=== PATIENT | male | born 1975 | race Caucasian/White ===

== ENCOUNTER → 2018-10-09 10:16 | Outpatient (CLI) | payer BC, SELFPAY ==
[2018-10-09 14:10] LABS: Alanine Aminotransferase 52 U/L (12-78); Albumin Level 3.8 gm/dL (3.4-5.0); Alkaline Phosphatase 87 U/L (46-116); Anion Gap 12.2 mEq/L (5-15); Aspartate Amino Transferase 22 U/L (15-37); Bilirubin,Total 0.6 mg/dL (0.2-1.0); Blood Urea Nitrogen 13 mg/dL (7-18); Calcium 8.8 mg/dL (8.5-10.1); Carbon Dioxide 29 mmol/L (21.0-32.0); Chloride 104 mmol/L (98-107); Chol/HDL Ratio 5.7 (1-3.5); Cholesterol 235 mg/dL (140-200); Creatinine,Serum 0.91 mg/dL (0.70-1.30); Estimated Glomerular Filt Rate 91 ml/min (>60); GFR (African American) 110 ML/MIN (>60); Globulin 3.9 gm/dl (1.3-3.2); Glucose 103 mg/dL (74-106); HDL Cholesterol 41 mg/dL (27-67); LDL Cholesterol 154 mg/dL (0-130); Potassium 4.2 mmoL/L (3.5-5.1); Sodium 141 mmol/L (136-145); Total Protein,Serum 7.7 gm/dL (6.4-8.2); Triglycerides 200 mg/dL (30-200); VLDL Cholesterol 40 mg/dL (0-40)
== END ==
PROVIDERS: PCP Nurse Practitioner Family; Visit Provider Nurse Practitioner Family
DX: Z00.00 Encounter for general adult medical examination without abnormal findings (principal); Z68.37 Body mass index [BMI] 37.0-37.9, adult; I10 Essential (primary) hypertension
CPT/HCPCS: 36415; 80053; 80061

== ENCOUNTER → 2020-01-28 10:42 | Outpatient (CLI) | payer BC, SELFPAY ==
[2020-01-28 14:17] LABS: Basophils % 0.2 % (0.1-2.0); Eosinophils # 0.1 K/mm3 (0.0-0.4); Eosinophils % 1.4 % (0.1-12.0); Hematocrit 45.2 % (42.0-52.0); Lymphocytes # 2.6 K/mm3 (0.7-4.5); Mean Corpuscular HGB Conc 33.2 g/dL (31.8-35.4); Mean Corpuscular Hemoglobin 31.3 pg (27.0-31.2); Mean Corpuscular Volume 94.4 fl (80-94); Mean Platelet Volume 8.5 fl (7.4-10.4); Monocytes # 0.3 K/mm3 (0.1-1.0); Monocytes % 4.8 % (1.7-9.3); Neutrophils # 2.6 K/mm3 (1.8-7.8); Neutrophils % 46.6 % (37.0-80.0); Platelet Count 202 K/mm3 (142-424); Red Blood Count 4.79 M/mm3 (4.60-6.20); Red Cell Distribution Width 13.3 % (11.5-17.5); White Blood Count 5.6 K/mm3 (4.8-10.8)
[2020-01-28 14:22] LABS: Alanine Aminotransferase 45 U/L (12-78); Albumin Level 4.4 g/dl (3.5-5.0); Albumin/Globulin Ratio 1.3 (1.1-1.8); Alkaline Phosphatase 92 U/L (38-126); Anion Gap 9.3 mEq/L (5-15); Aspartate Amino Transferase 33 U/L (17-59); Bilirubin,Total 0.5 mg/dl (0.2-1.3); Blood Urea Nitrogen 13 mg/dl (9-20); Calcium 9.6 mg/dl (8.4-10.2); Carbon Dioxide 28 mmol/L (22.0-30.0); Chloride 104 mmol/L (98-107); Chol/HDL Ratio 5.7 (1-3.5); Cholesterol 227 mg/dl (140-200); Estimated Glomerular Filt Rate 91 ml/min (>60); GFR (African American) 110 ML/MIN (>60); Globulin 3.5 g/dL (1.3-3.2); Glucose 104 mg/dl (74-100); HDL Cholesterol 40 mg/dl (40-60); Potassium 4.3 mmoL/L (3.5-5.1); Sodium 137 mmol/L (136-145); Total Protein,Serum 7.9 g/dl (6.3-8.2); Triglycerides 213 mg/dl (30-150); VLDL Cholesterol 43 mg/dL (0-40)
[2020-01-28 14:33] LABS: Direct LDL Cholesterol 151.81 mg/dL (100-129)
[2020-01-28 14:53] LABS: Thyroid Stimulating Hormone 2.52 uIU/mL (0.465-4.68)
[2020-01-29 09:52] LABS: Testosterone,Total 318 ng/dL (264-916); Vitamin B12 403 pg/mL (232-1245)
== END ==
LOC: LAB.CARL 10:43
PROVIDERS: Visit Provider Nurse Practitioner Family
DX: I10 Essential (primary) hypertension (principal); R40.0 Somnolence; Z68.39 Body mass index [BMI] 39.0-39.9, adult
CPT/HCPCS: 36415; 80053; 80061; 82607; 84403; 84443; 85025

== ENCOUNTER → 2021-10-15 13:22 | Outpatient (CLI) | payer BC, SELFPAY | PROVIDERS: PCP Internal Medicine Adolescent Medicine; Visit Provider Nurse Practitioner | DX: Z20.822 Contact with and (suspected) exposure to COVID-19 (principal) | CPT/HCPCS: C9803; U0003; U0005 ==

== ENCOUNTER 2024-06-28 13:13 | Emergency (ER) | payer OTHER, SELFPAY ==
[2024-06-28 13:14] VITALS: BP 140/89; PULSE 83; RESP 18; TEMP 37.4; O2SAT 97; BMI 39.0
--- NOTE | 2024-06-28 13:57 | ED_ITS ---
<Statement entered by Zachery Pillai MD - 07/01/24 22:14> I was consulted by the LEANNA, and we discussed the complexity of the problems being addressed. I approved the treatment and management plan for this patient's care in the emergency department, thus performing a substantive portion of the medical decision making. Zachery Pillai MD, SILVIA, FACEP Discharge Plan Disposition Patient Disposition: Home, Self-Care Condition: Good Prescriptions Prescriptions: New amoxicillin-pot clavulanate 875-125 mg tablet 1 tab PO BID Qty: 20 0RF Referrals Follow up/Referrals: Leonard Newby MD [Staff Physician] - See instructions (Umbilical hernia) Everardo Clemens MD [Primary Care Provider] - See instructions Activity Restrictions/Add. Instructions Additional Instructions/Restrictions: Please call in the morning to make your appointment with general surgery for evaluation of your umbilical hernia. Return to the ER if you are unable to pass gas have a bowel movement or tolerate oral intake. Clinical Impressions Clinical Impression: Hernia, umbilical, Diverticulitis Instructions Patient Instructions: DI for Acute Abdominal Pain Print Language Print Language: Slovenian Discharge ED Provider: Zachery Pillai General Adult HPI General Chief complaint: Abdominal Pain Stated complaint: abd pain /poss hernia Time Seen by Provider: 06/28/24 13:57 Mode of Arrival: Ambulatory Source of Information: Patient Limitations: No Limitations Description of Symptoms (Recalled from ER Triage Doc. by RN): Reports irritating possible umbilical hernia. States he has never been diagnosed with a hernia however approx 1 day ago he began to have pain and burning in that area. History of Present Illness HPI narrative: Patient presents for evaluation of periumbilical pain. Patient has a self diagnosed umbilical hernia that he has had for quite some time and over the past year he has had intermittent difficulty. However the last 24 hours he has had significant amount of discomfort and is very tender to palpation. He is not intolerant of oral intake but does not want to eat but is taking oral fluids. He is passing gas and has had a bowel movement. He denies chest pain fever chills hemoptysis hematochezia melena nausea vomiting diarrhea. Related Data Previous Rx's ?Medication ?Instructions ?Recorded amoxicillin 875 mg-potassium 1 tab PO BID #20 tabs 06/28/24 clavulanate 125 mg tablet Allergies Allergy/AdvReac Type Severity Reaction Status Date / Time No Known Allergies Allergy Verified 06/28/24 13:32 [facility] Disclaimer: The information contained in this section may have been updated after the patient was seen, as this information can be updated by other users. Social History Smoking Status: Unknown if ever smoked alcohol intake: never current occupational status: employed Travel in the last 8 weeks: Inside the [place] ROS Obtained: Yes Systems reviewed as appropriate & no additional complaints except as documented Physical Exam General General appearance: alert and in no apparent distress Respiratory Respiratory exam: Present normal lung sounds bilaterally Cardiovascular Cardiovascular exam: Present regular rate and normal rhythm Abdominal Exam Abdominal exam: Present soft, tenderness (Patient is tender at the umbilicus. He has a visible defect however I am unable to assess fully due to his discomfort but I do not feel a loop of bowel definitively. Patient does have normal bowel sounds) and normal bowel sounds; Absent guarding or rebound Neurological Exam Neurological exam: Present alert and oriented X3 Medical Decision Making Medical Records Medical records reviewed: Yes I reviewed the patient's medical records. Jn Inquiry Pt receiving controlled substance: No Vital Signs: 06/28/24 13:14 06/28/24 16:20 Temperature 99.4 F Temperature Source Oral Pulse Rate 74 Pulse Rate [Radial] 83 Respiratory Rate 18 Blood Pressure 114/79 Blood Pressure [Right Arm] 140/89 Blood Pressure Mean [Right Arm] 106 Blood Pressure Source [Right Arm] Automatic Cuff Blood Pressure Position [Right Arm] Sitting 02 Sat by Pulse Oximetry 97 95 Oxygen Delivery Method Room Air Room Air Lab Data Lab results reviewed: Yes I reviewed the patient's lab results. Lab Results 06/28/24 14:17: WBC 11.7 H, RBC 4.81, Hgb 15.8, Hct 47.7, MCV 99.2 H, MCH 32.8 H , MCHC 33.1, RDW 14.1, Plt Count 181, MPV 8.8, Neut % (Auto) 77.4, Lymph % (Auto) 15.6, [place] % (Auto) 5.6, Eos % (Auto) 1.0, Baso % (Auto) 0.4, Neut # (Auto) 9.1 H, Lymph # (Auto) 1.8, [place] # (Auto) 0.7, Eos # (Auto) 0.1, Baso # (Auto) 0.0, PT 10.7, INR 0.95, Sodium 136, Potassium 4.1, Chloride 106, Carbon Dioxide 27, Anion Gap 7.1, BUN 12, Creatinine 0.80, Estimated Creat Clear 201, Estimated GFR 103, Est GFR ( Amer) 124, Glucose 96, Lactate 1.1, Calcium 8.5, Total Bilirubin 1.1, AST 36, ALT 37, Alkaline Phosphatase 90, Total Protein 7.7, Albumin 4.2, Globulin 3.5 H, Albumin/Globulin Ratio 1.2 06/28/24 14:17 06/28/24 14:17 Orders (Tests/Meds): ED MEDICATIONS Generic Name Dose Route Start Last Admin Trade Name Freq PRN Reason Stop Dose Admin Amoxicillin/Clavulanate Potassium 1 each 06/28/24 16:23 Amoxicillin/Clavulanate Potassium 875/125mg Tablet PO 06/28/24 16:24 ONCE ONE Sodium Chloride 10 ml 06/28/24 14:46 06/28/24 14:47 Sodium Chloride 0.9% 10ml Syr (Rad Only) IV 07/28/24 14:45 10 ml NEEDED PRN Administration Maintain IV Site Discontinued Medications Generic Name Dose Route Start Last Admin Trade Name Freq PRN Reason Stop Dose Admin Acetaminophen 1,000 mg 06/28/24 14:07 06/28/24 14:24 Acetaminophen 1,000mg/100ml Vial IV 06/28/24 14:08 1,000 mg ONCE ONE Administration Iopamidol 75 ml 06/28/24 14:46 06/28/24 14:47 Iopamidol-370 (76%);100ml Bottle IV 06/28/24 14:47 75 ml ONCE ONE Administration Morphine Sulfate 2 mg 06/28/24 14:07 06/28/24 14:28 Morphine 2mg/Ml Syringe IV 06/28/24 14:08 Not Given ONCE ONE Ondansetron HCl 4 mg 06/28/24 14:07 06/28/24 14:24 Ondansetron 4mg/2ml Vial IV 06/28/24 14:08 4 mg ONCE ONE Administration ORDERS Category Date Time Status CT abdomen pelvis w con Stat Cat Scan 06/28/24 14:07 Completed CBC w/Auto Diff [Complete Blood Count Auto Diff] Stat Lab 06/28/24 14:17 Completed CMP [Comprehensive Metabolic Panel] Stat Lab 06/28/24 14:17 Completed INR [Prothrombin Time INR] Stat Lab 06/28/24 14:17 Completed Lactic Acid Stat Lab 06/28/24 14:17 Completed Medical Decision Narrative: In summary patient is a 48-year-old male who presents to the emergency department for evaluation of periumbilical pain. Patient is hemodynamically stable upon arrival, afebrile. Physical exam is remarkable for a small area that appears to be an umbilical hernia however I am unable to do a definitive exam due to the patient's discomfort. He does have normal bowel sounds without rebound or guarding or rigidity.. Differential diagnosis includes umbilical hernia versus incarcerated umbilical hernia versus bowel obstruction etc. Initial workup will be conducted with hematologic labs CT scan abdomen pelvis. Initial interventions include crystalloid bolus Tylenol morphine. Initial workup reviewed by me and his hematologic labs are reassuring and nonactionable and my informal interpretation of his CT scan abdomen pelvis shows a fat- containing umbilical hernia that has no obvious evidence of stranding prior to radiology read. Radiology however did not comment on the area of interest around the umbilicus however they did read an area of thickening of the transverse colon and slight mesenteric stranding adjacent to a solitary diverticulum suggestive of possible early diverticulitis. Patient however does not have any symptoms suggestive of diverticulitis including fever chills elevated white count elevated lactate diarrhea etc. upon repeat evaluation patient did report improvement in his symptoms after initial intervention. Given this patient will be referred to general surgery for evaluation of repair of his umbilical hernia with strict return precautions. Patient although asymptomatic from a diverticulitis standpoint I will place patient on antibiotics with strict return precautions. Critical Care Critical Care Time Critical Care Time: No
--- NOTE | 2024-06-28 14:07 | CT_ITS ---
FINAL REPORT TECHNIQUE: After the administration of oral and intravenous contrast, axial images were obtained through the abdomen and pelvis by computed tomography. The study was performed with techniques to keep radiation dose as low as reasonably achievable, (ALARA). Individual dose reduction techniques using automated exposure control or adjustment of mA and/or kV according to the patient's size were employed. CLINICAL HISTORY: Periumbilical pain COMPARISON: None FINDINGS: Abdomen: The lung bases are clear. Moderate fatty infiltration of the liver is present. The gallbladder is present. The spleen, pancreas, adrenals and kidneys appear unremarkable. The aorta is normal in caliber. There is no free fluid or adenopathy. There is mild stranding of the mesentery in the upper abdomen slightly to the left of midline, adjacent to a segment of transverse colon with slight wall thickening and a small inferior diverticulum seen best on coronal image #19 of series 1001, most likely early diverticulitis without evidence of adjacent fluid collection or air. Pelvis: The appendix is normal in appearance. The urinary bladder is incompletely distended. There is no free fluid or adenopathy. IMPRESSION: Mild stranding of the mesentery in the upper abdomen slightly to the left of midline, adjacent to a segment of transverse colon with slight wall thickening and a small inferior diverticulum as described above. This most likely represents early change of diverticulitis without evidence of adjacent fluid collection or air. Reviewed, Interpreted and Dictated by Jason Metcalf MD Transcribed by Ute Sanders Authenticated and [facility]
[2024-06-28] MEDS: ACETAMINOPHEN 1,000MG/100ML VIAL 1000 MG IV (14:24)
[2024-06-28] MEDS: ONDANSETRON 4MG/2ML VIAL 4 MG IV (14:24)
[2024-06-28 14:27] LABS: Basophils % 0.4 % (0.1-2.0); Eosinophils # 0.1 K/mm3 (0.0-0.4); Hematocrit 47.7 % (42.0-52.0); Hemoglobin 15.8 g/dL (14.1-18.0); Lymphocytes # 1.8 K/mm3 (0.7-4.5); Lymphocytes % 15.6 % (10-50); Mean Corpuscular HGB Conc 33.1 g/dL (31.8-35.4); Mean Corpuscular Hemoglobin 32.8 pg (27.0-31.2); Mean Corpuscular Volume 99.2 fl (80-94); Mean Platelet Volume 8.8 fl (7.4-10.4); Monocytes # 0.7 K/mm3 (0.1-1.0); Monocytes % 5.6 % (1.7-9.3); Neutrophils # 9.1 K/mm3 (1.8-7.8); Neutrophils % 77.4 % (37.0-80.0); Platelet Count 181 K/mm3 (142-424); Red Blood Count 4.81 M/mm3 (4.60-6.20); Red Cell Distribution Width 14.1 % (11.5-17.5); White Blood Count 11.7 K/mm3 (4.8-10.8)
[2024-06-28 14:31] LABS: Albumin Level 4.2 g/dl (3.5-5.0); Chloride 106 mmol/L (98-107); Potassium 4.1 mmoL/L (3.5-5.1); Sodium 136 mmol/L (136-145)
[2024-06-28 14:33] LABS: Blood Urea Nitrogen 12 mg/dl (9-20); Creatinine Clearance Estimated 201 mL/min (50-200); Estimated Glomerular Filt Rate 103 ml/min (>60); GFR (African American) 124 ML/MIN (>60)
[2024-06-28 14:34] LABS: Alanine Aminotransferase 37 U/L (12-78); Albumin/Globulin Ratio 1.2 (1.1-1.8); Alkaline Phosphatase 90 U/L (38-126); Anion Gap 7.1 mEq/L (5-15); Aspartate Amino Transferase 36 U/L (17-59); Bilirubin,Total 1.1 mg/dl (0.2-1.3); Calcium 8.5 mg/dl (8.4-10.2); Carbon Dioxide 27 mmol/L (22.0-30.0); Globulin 3.5 g/dL (1.3-3.2); Glucose 96 mg/dl (74-100); Total Protein,Serum 7.7 g/dl (6.3-8.2)
[2024-06-28 14:36] LABS: INR 0.95 (0.9-1.1); Prothrombin Time 10.7 seconds (10.1-12.5)
[2024-06-28 14:47] LABS: Lactic Acid 1.1 mmol/L (0.7-2.1)
[2024-06-28] MEDS: IOPAMIDOL-370 (76%);100ML BOTTLE 75 ML IV (14:47)
[2024-06-28] MEDS: SODIUM CHLORIDE 0.9% 10ML SYR (RAD ONLY) 10 ML IV (14:47)
[2024-06-28 16:20] VITALS: BP 114/79; PULSE 74; O2SAT 95
--- NOTE | 2024-06-28 16:20 | PC.NURSE ---
Rounded on pt. Updated that we are waiting on scan results. No other needs voiced at this time. Visitor at BS.
[2024-06-28] MEDS: AMOXICILLIN/CLAVULANATE POTASSIUM 875/125MG TABLET 1 EACH PO (16:29)
[2024-06-28 16:32] VITALS: BP 122/81; PULSE 72; RESP 19; TEMP 36.7; O2SAT 95
== END 2024-06-28 16:35 | disposition home or self-care (01) ==
PROVIDERS: Physician Assistant; Emergency Provider Student in an Organized Health Care Education/Training Program; PCP Internal Medicine Adolescent Medicine
DX: R10.33 Periumbilical pain (principal); K42.9 Umbilical hernia without obstruction or gangrene; K57.92 Diverticulitis of intestine, part unspecified, without perforation or abscess without bleeding
CPT/HCPCS: 74177; 80053; 83605; 85025; 85610; 96374; 96375; 99284; J0131; J2270; J2405; Q9967